=== PATIENT | male | born 1990 | race Caucasian/White ===

== ENCOUNTER 2021-06-08 06:57 | Emergency (ER) | payer OTHER, SELFPAY ==
[2021-06-08 07:29] VITALS: BP 151/81; PULSE 70; RESP 16; TEMP 36.1; O2SAT 98; BMI 23.6
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
[2021-06-08] MEDS: Lidocaine HCl 2 % MPF 5 ML VIAL INFILTRATI (09:34)
[2021-06-08] MEDS: Ibuprofen 800 MG TABLET PO (09:34)
[2021-06-08] MEDS: cephALEXin 500 MG CAPSULE PO (09:34)
== END 2021-06-08 09:37 | disposition home or self-care (01) ==
PROVIDERS: Emergency Provider Emergency Medicine
DX: L02.512 Cutaneous abscess of left hand (principal); L03.114 Cellulitis of left upper limb; F19.10 Other psychoactive substance abuse, uncomplicated; F11.20 Opioid dependence, uncomplicated
CPT/HCPCS: 10060; 99284

== ENCOUNTER 2021-08-16 16:08 | Emergency (ER) | payer OTHER, SELFPAY ==
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
[2021-08-16 18:47] VITALS: BP 155/95; PULSE 97; RESP 18; TEMP 36.7; O2SAT 96; BMI 22.9
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
[2021-08-16] MEDS: Lidocaine HCl 2 % MPF 5 ML VIAL SUBCUT (20:05)
== END 2021-08-16 20:56 | disposition home or self-care (01) ==
PROVIDERS: Emergency Provider Emergency Medicine Emergency Medical Services; PCP Internal Medicine
DX: S01.81XA Laceration without foreign body of other part of head, initial encounter (principal); S06.0X9A Concussion with loss of consciousness of unspecified duration, initial encounter; G44.309 Post-traumatic headache, unspecified, not intractable; X99.9XXA Assault by unspecified sharp object, initial encounter; Y93.9 Activity, unspecified; Y92.9 Unspecified place or not applicable; Y99.9 Unspecified external cause status; Z79.899 Other long term (current) drug therapy
CPT/HCPCS: 12015; 70450; 96372; 99284

== ENCOUNTER 2023-12-28 20:05 | Emergency (ER) | payer OTHER, SELFPAY ==
[2023-12-28 20:27] VITALS: BP 197/126; PULSE 86; RESP 16; TEMP 36.7; O2SAT 96; BMI 25.8
--- NOTE | 2023-12-28 20:31 | ED.GENADULT ---
HPI - General Adult General Stated complaint: hand itching/rash Time Seen by Provider: 12/28/23 20:30 Source: patient Mode of arrival: ambulatory History of Present Illness ED Provider: Susan SAWYER HPI narrative: 33-year-old male history of IV drug abuse presents with itchy rash to bilateral upper extremities present for the past few days. He does have a history IV drug abuse and does not know if he is just ? bugging or something like scabies is going on. Denies chest pain, shortness of breath, fevers, chills, nausea, vomiting. Related Data Previous Rx's ?Medication ?Instructions ?Recorded cephalexin 500 mg capsule 500 mg PO Q6H 10 days #40 caps 06/08/21 doxycycline monohydrate 100 mg 100 mg PO BID 10 days #20 caps 06/08/21 capsule ibuprofen 600 mg tablet 600 mg PO Q8H PRN pain #20 tabs 06/08/21 cephalexin 500 mg tablet 500 mg PO Q6H 10 days #40 tabs 08/16/21 doxycycline hyclate 100 mg capsule 100 mg PO BID 10 days #20 caps 08/16/21 cephalexin 500 mg tablet 500 mg PO Q6H 10 days #40 tabs 12/28/23 doxycycline hyclate 100 mg capsule 100 mg PO BID 10 days #20 caps 12/28/23 Allergies Allergy/AdvReac Type Severity Reaction Status Date / Time No Known Allergies Allergy Verified 12/28/23 20:31 Review of Systems Review of Systems: Yes all other systems are reviewed and are negative PMFSH Past Medical History Attestation statement: The following information was validated with the patient. Source: old records reviewed and nursing notes reviewed Physical Exam ED Vital Signs: vss Appearance: Alert.? Oriented X3.? No acute cardiopulmonary distress distress.? Head: Normocephalic, atraumatic, no step-offs or deformitie Neck: Normal inspection.? Neck supple.? CVS: Pulses normal.? Respiratory: No respiratory distress.? Skin: ? Normal skin color. + patient has scabs to upper extremities and lower extremities, no burrows noted in web spaces. There is erythema around some scabs. Track duffy noted to bilateral upper extremities. Extremities: 5/5 strength to bilateral upper and lower extremities Back: No midline tenderness, no C-spine tenderness, full range of motion, No CVA tenderness bilaterally Neuro: Oriented X 3.? No motor deficit.? No sensory deficit. Medical Decision Making Medical Decision Making MDM Narrative: 33-year-old male presents with rash he thinks he may have scabies. Present for the past few days. He is an IV drug abuser. Physical exam rash noted to upper and lower extremities. Track duffy also noted History and physical exam concerning for IV DA scabs versus rash. Unlikely scabies unlikely necrotizing infection. No signs of acute abscess or cellulitis. Plan will send antibiotics to patient's pharmacy Differential Diagnosis Differential Diagnoses: The differential diagnosis associated with the presentation includes History and physical exam concerning for IV DA scabs versus rash. Unlikely scabies unlikely necrotizing infection. No signs of acute abscess or cellulitis. Prescription Management I considered prescription management with: Antibiotic Discharge Plan Discharge Clinical Impression: Rash Patient Disposition: Home, Self-Care Instructions: Acute Rash (ED), Cold Compress or Soak (ED) Additional Instructions: Take your medications as prescribed. If you were prescribed antibiotics today, it is important that you take your medication to their entirety, do not skip any doses, do not finish them early. Follow-up with your primary care provider this week. Return to the emergency department with new or worsening symptoms. Such as fevers, chills, chest pain, shortness of breath, nausea, vomiting, dizziness, headache, vision changes, lethargy In case of emergency call 911 Prescriptions: New doxycycline hyclate 100 mg capsule 100 mg PO BID 10 Days Qty: 20 0RF cephalexin 500 mg tablet 500 mg PO Q6H 10 Days Qty: 40 0RF No Action doxycycline monohydrate 100 mg capsule 100 mg PO BID 10 Days Qty: 20 0RF cephalexin 500 mg capsule 500 mg PO Q6H 10 Days Qty: 40 0RF ibuprofen 600 mg tablet 600 mg PO Q8H PRN (Reason: pain) Qty: 20 0RF doxycycline hyclate 100 mg capsule 100 mg PO BID 10 Days Qty: 20 0RF cephalexin 500 mg tablet 500 mg PO Q6H 10 Days Qty: 40 0RF Referrals: ED Physician,Generic [Emergency Provider] - 2 days Print Language: Romanian
[2023-12-28 21:38] VITALS: BP 197/126; PULSE 86; RESP 16; TEMP 36.7; O2SAT 96
== END 2023-12-28 21:38 | disposition home or self-care (01) ==
LOC: HO.ED 21:30
PROVIDERS: Emergency Provider Internal Medicine; PCP Internal Medicine
DX: R23.8 Other skin changes (principal); F11.10 Opioid abuse, uncomplicated
CPT/HCPCS: 99282; 99283

== ENCOUNTER 2023-12-30 03:58 | Emergency (ER) | payer OTHER, SELFPAY ==
[2023-12-30 04:06] VITALS: BP 182/112; PULSE 98; RESP 18; TEMP 36.6; O2SAT 98; BMI 32.3
--- NOTE | 2023-12-30 04:21 | ED.SKABFB ---
HPI - Skin/Abscess/Foreign Bdy General Chief complaint: Skin/Abscess/Foreign Body Stated complaint: rash Time Seen by Provider: 12/30/23 04:15 Source: patient Mode of arrival: ambulatory Limitations: no limitations History of Present Illness ED Provider: Dr. Charla Waller HPI narrative: Patient comes to the emergency room stating that he is certain that he has bugs crawling under his skin. Patient has been pinching his skin and states that he sees bugs jumping out. States that he has pulled a few of these bugs earlier today, they look brown. Patient was seen 2 days ago, patient was given a prescription for cellulitis. Patient states that he did not pick it up. Patient states that he is afraid that because he uses IV drugs, that he may have injected accidentally eggs inside of his skin and now they are both growing out from both arms Related Data Previous Rx's ?Medication ?Instructions ?Recorded cephalexin 500 mg capsule 500 mg PO Q6H 10 days #40 caps 06/08/21 doxycycline monohydrate 100 mg 100 mg PO BID 10 days #20 caps 06/08/21 capsule ibuprofen 600 mg tablet 600 mg PO Q8H PRN pain #20 tabs 06/08/21 cephalexin 500 mg tablet 500 mg PO Q6H 10 days #40 tabs 08/16/21 doxycycline hyclate 100 mg capsule 100 mg PO BID 10 days #20 caps 08/16/21 cephalexin 500 mg tablet 500 mg PO Q6H 10 days #40 tabs 12/28/23 doxycycline hyclate 100 mg capsule 100 mg PO BID 10 days #20 caps 12/28/23 permethrin 1 % topical liquid 60 ml topical ONCE #59 mL 12/30/23 (Lice Killing (permethrin)) Allergies Allergy/AdvReac Type Severity Reaction Status Date / Time No Known Allergies Allergy Verified 12/30/23 04:08 Review of Systems Review of Systems: Constitutional : No Weight loss, No Fever, No Chills, No Night Sweats, No Fatigue, No Malaise ENT/Mouth : No Hearing loss, No Ear Pain, No Nasal Congestion, No Sinus Pain, No Hoarseness, No sore throat, No Rhinorrhea, No Swallowing Difficulty Eyes: No Eye Pain, No Swelling, No Redness, No Foreign Body, No Discharge, No Vision Changes Cardiovascular : No Chest Pain, No SOB, No Dyspnea on Exertion, No Orthopnea, No Edema, No Palpitations Respiratory : No Cough, No Sputum, No Wheezing, No Smoke Exposure, No Dyspnea Gastrointestinal : No Nausea, No Vomiting, No Diarrhea, No Constipation, No abdominal Pain, No Hematochezia, No Melena Genitourinary : no irregular bleeding, No Dysuria, No Urinary Frequency, No Hematuria, No Urinary Incontinence, No Urgency, No Flank Pain, No Urinary Flow Changes, No Hesitancy Musculoskeletal : No joint pain, No Myalgias, No Joint Swelling Skin : Complaining of bugs jumping out of his skin Neuro : No Weakness, No Numbness, No Paresthesias, No Loss of Consciousness, No Dizziness, No Headache Psych : No Anxiety/Panic, No Depression, No SI/HI/AH/VH, No Social Issues, Heme/Lymph: No Bruising, No Bleeding,No Lymphadenopathy Endocrine : No Polyuria, No Polydipsia, No Temperature Intolerance PMFSH Past Medical History Medical History IV drug user Physical Exam Vital Signs: Vital Signs: Last Vital Signs Temp 97.9 F 12/30/23 04:06 Pulse 98 12/30/23 04:06 Resp 18 12/30/23 04:06 BP 182/112 H 12/30/23 04:06 Pulse Ox 98 12/30/23 04:06 O2 Del Method Room Air 12/30/23 04:06 BMI result Body Mass Index 32.3 Const: Other: Appearance: Alert. Oriented X3. No acute distress. Eyes: Pupils equal, round and reactive to light. ENT: Pharynx normal. Neck: Normal inspection. Neck supple. No lymph nodes noted. No crepitus CVS: Normal heart rate and rhythm. Pulses normal. Normal S1 and S2 Respiratory: No respiratory distress. Breath sounds normal. No Wheezing. No rales Abdomen: Soft and nontender. No rigidity. No distention. Skin: Patient is actively pinching his skin, pulling of scabs Extremities: No lower extremity edema. No Lacerations. No Rash Neuro: Oriented X 3. No motor deficit. No sensory deficit. Moving all extremities. No slurred speech. 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 Discussed that what he is pulling of are scabs -patient adamant that he has bugs under his skin. -I agreed with the patient to give him a 1 time treatment which she will machine operator hop picker his pharmacy Differential Diagnosis Differential Diagnoses: The differential diagnosis associated with the presentation includes (Delusional parasitosis) Discharge Plan Discharge Clinical Impression: Delusions of parasitosis Patient Disposition: Home, Self-Care Instructions: Anxiety (ED) Additional Instructions: Please follow-up with your primary care physician tomorrow. If you have any worsening or new symptoms, please return to the emergency room or call 911 Prescriptions: New Lice Killing (permethrin) 1 % liquid 60 ml topical ONCE Qty: 59 0RF No Action doxycycline monohydrate 100 mg capsule 100 mg PO BID 10 Days Qty: 20 0RF cephalexin 500 mg capsule 500 mg PO Q6H 10 Days Qty: 40 0RF ibuprofen 600 mg tablet 600 mg PO Q8H PRN (Reason: pain) Qty: 20 0RF doxycycline hyclate 100 mg capsule 100 mg PO BID 10 Days Qty: 20 0RF cephalexin 500 mg tablet 500 mg PO Q6H 10 Days Qty: 40 0RF doxycycline hyclate 100 mg capsule 100 mg PO BID 10 Days Qty: 20 0RF cephalexin 500 mg tablet 500 mg PO Q6H 10 Days Qty: 40 0RF Print Language: Greek
[2023-12-30 04:46] VITALS: BP 179/104; PULSE 86; RESP 18; TEMP 36.7; O2SAT 98
== END 2023-12-30 04:47 | disposition home or self-care (01) ==
PROVIDERS: Emergency Provider Emergency Medicine
DX: F22 Delusional disorders (principal)
CPT/HCPCS: 99282; 99283